=== PATIENT | female | born 1930 | race Caucasian/White ===

== ENCOUNTER 2017-08-18 07:10 | Inpatient (IN) | payer OTHER, MEDICARE ==
[~2017-08-18] VITALS: Ht 157.5 cm; Wt 62.6 kg
--- NOTE | 2017-08-18 07:10 | NUR ---
Patient BIBA ACLS, transferred to bed 10. RN evaluating patient at bedside.
[2017-08-18 07:15] VITALS: BP 144/73
--- NOTE | 2017-08-18 07:15 | NUR ---
PATIENT BIBA C/O UNRESPONSIVE, LOW BS , GLUCAGON WAS GIVEN ENROUTE. PATIENT NON VERBAL ,NON AMBULATORY. BS ON ER IS 25;D 5050 STARTED;HX OF DEMENTIA,ALZHEIMER AND DIVERTICULOSIS;SKIN IS PINK/WARM/DRY;LUNGS CLEAR BL; HR EVEN AND REGULAR; NO FEVER, CP, SOB, OR COUGH AT THIS TIME; PAIN SCALE OF 0/10 AT THIS TIME; PATIENT POSITIONED FOR COMFORT; HOB ELEVATED; BEDRAILS UP X2; BED DOWN. ALL MONITORS IN PLACED;ER MD MADE AWARE OF PT STATUS.
[2017-08-18] MEDS ORDERED: DEXTROSE 50% 50 ML SYR IVP ONE ×2 (07:30→07:55)
[2017-08-18] MEDS ORDERED: LOSA50TA39 PO (07:33)
[2017-08-18] MEDS ORDERED: SERT25TA PO (07:33)
[2017-08-18] MEDS ORDERED: QUET25TA PO (07:33)
[2017-08-18] MEDS ORDERED: CLON0.1T42 PO (07:33)
[2017-08-18] MEDS ORDERED: METO50TE2 PO (07:33)
[2017-08-18] MEDS ORDERED: ASPI81CT89 PO (07:33)
--- NOTE | 2017-08-18 07:38 | NUR ---
Shaheen means in [place] - 08/18/17 at 0739 by JULIANNE CALLED [facility] TO ASKED ABOUT PT'S CODE STATUS BUT NO ONE IS ANSWERING THE PHONE CALL;
--- NOTE | 2017-08-18 07:38 | NUR ---
CALLED [facility] TO ASKED ABOUT PT'S CODE STATUS BUT NO ONE IS ANSWERING THE PHONE CALL;
[2017-08-18] MEDS ORDERED: NACL 0.9% 1,000 ML IV ONE (08:35)
[2017-08-18] MEDS ORDERED: diphenhydrAMINE 50 MG/ML VIAL IVP ONE (09:10)
[2017-08-18] MEDS ORDERED: HALOPERIDOL IM 5 MG/ML VIAL IM ONE (09:10)
[2017-08-18 09:24] LABS: BASOPHILS # (AUTO) 0.2 K/uL (0.00-0.22); BASOPHILS % (AUTO) 2.1 % (0.0-2.0); EOSINOPHILS # (AUTO) 0.1 K/uL (0-0.4); EOSINOPHILS % (AUTO) 0.6 % (0.0-4.0); HEMATOCRIT 47.4 % (36-48); HEMOGLOBIN 15.4 g/dL (12.0-16.0); LYMPHOCYTES # (AUTO) 0.9 K/uL (2.5-16.5); LYMPHOCYTES % (AUTO) 8.9 % (20.5-51.1); MEAN CORPUSCULAR HEMOGLOBIN 29 pg (27-31); MEAN CORPUSCULAR HGB CONC 32 g/dL (33-37); MEAN CORPUSCULAR VOLUME 90 fL (80-94); MONOCYTES # (AUTO) 0.6 K/uL (0.8-1.0); MONOCYTES % (AUTO) 5.9 % (1.7-9.3); NEUTROPHILS # (AUTO) 8.2 K/uL (1.8-7.7); NEUTROPHILS % (AUTO) 82.5 % (42.2-75.2); PLATELET COUNT (AUTO) 204 K/uL (140-450); RED BLOOD CELL COUNT(AUTO) 5.24 MIL/uL (4.20-5.40)
--- NOTE | 2017-08-18 09:27 | NUR ---
PER DR GELACIO ALLEN
[2017-08-18 09:29] LABS: ALBUMIN 3.1 g/dL (3.4-5.0); ASPARTATE AMINOTRANSFERASE 42 U/L (15-37); CARBON DIOXIDE 28.8 mmol/L (21-32); CHLORIDE 102 mmol/L (98-107); CREATININE 1.4 mg/dL (0.6-1.3); POTASSIUM 4.8 mmol/L (3.5-5.1); SODIUM SERUM 139 mmol/L (136-145); TOTAL BILIRUBIN 0.6 mg/dL (0.0-1.0); UREA NITROGEN, BLOOD 45 mg/dL (7-18)
[2017-08-18 09:31] LABS: GLUCOSE 40 mg/dL (74-106)
[2017-08-18 09:39] LABS: BILIRUBIN,URINE NEGATIVE (NEGATIVE); BLOOD, URINE TRACE-I (NEGATIVE); COLOR,URINE YELLOW (YELLOW); LEUKOCYTE ESTERASE ,URINE 1+ (NEGATIVE); PH,URINE 5.5 (5.0-9.0); UGLUCOSE NEGATIVE (NEGATIVE)
--- NOTE | 2017-08-18 09:43 | NUR ---
PER CHARGE NURSE;RECIEVED A CALL FROM LAB REGARDING PT'S BS OF 40;RECHECKED BS THRU ACCUCHECK OBTAIN BS OF 100; CHARGE NURSE WANTS TO ORDER A BLOOD REDRAW;NOTIFIED DR BRIZUELA ;PER DR BRIZUELA NO BLOOD REDRAW AND START D10;
[2017-08-18 09:47] LABS: NITRITE, URINE POSITIVE (NEGATIVE); RBC,URINE 0-5 (RARE) /HPF (0-5); WBC,URINE 6-15 (FEW) /HPF (0-5)
[2017-08-18 09:48] LABS: APPEARANCE,URINE SLIGHTLY HAZY (CLEAR); YEAST,URINE Few /HPF (None Seen)
--- NOTE | 2017-08-18 09:57 | NUR ---
PER DR BRIZUELA START D10 1 L TO RUN AT 100 ML/HR;D10 1 L WAS STARTED AT AROUND 0952 AT 100 ML/HOUR;
[2017-08-18] MEDS ORDERED: cefTRIAXone 1,000 MG VIAL ONE (10:20)
--- NOTE | 2017-08-18 10:29 | NUR ---
PT SLEEPING AT THIS TIME BUT AROUSABLE;NO CUTE DIASTRESS NOTED AT THIS TIME;WILL CONTINUE TO MONITOR.
--- NOTE | 2017-08-18 10:45 | NUR ---
WENT TO CT SCAN ACCOMPNAIED BY TECH.
[2017-08-18] MEDS ORDERED: HYDROcodone/APAP 5/325 MG 1 TAB TAB PO PRN (11:00)
[2017-08-18] MEDS ORDERED: ONDANSETRON 4 MG/2 ML VIAL IVP PRN (11:00)
[2017-08-18] MEDS ORDERED: ACETAMINOPHEN 325 MG TAB PO PRN (11:00)
--- NOTE | 2017-08-18 11:02 | NUR ---
BACK FROM CT SCAN ACCOMPANIED BY GEOVANNA.
--- NOTE | 2017-08-18 11:15 | NUR ---
PER RESEARCH CONSULTANT THERE IS NO BED AVAILABLE FOR THE PT.
--- NOTE | 2017-08-18 12:30 | NUR ---
Patient will be admitted to care of DR PINZON. Admited to MS. Will go to room 105 A. Belongings list completed. Report to BAY CHERY.
[2017-08-18 12:45] VITALS: BP 120/49
--- NOTE | 2017-08-18 12:45 | NUR ---
PT ADMITTED TO UNIT FROM ER. PT AWAKE WITH ALOC. PT ON RA WITH NO SOB OR RESPIRATORY DISTRESS. IV LINE NOTED TO THE RIGHT AC WITH IVF INFUSING WELL. IV LINE TO THE LEFT FOREARM SL. FARRIS CATHETER IN PLACE DRAINING CLEAR LIGHT ANGELINA URINE. PT HAS BLANCHABLE REDNESS ON RIGHT HIP AND PT HAS SCAB ON THE LEFT HIP. BED LOWERED AND CALL LIGHT WITHIN REACH. WILL CONTINUE TO MONITOR PATIENT.
--- NOTE | 2017-08-18 13:00 | NUR ---
PT SEEN BY DR. Juan David PINZON. PT'S PRESENT IN ROOM.
[2017-08-18] MEDS: DEXTROSE 10% 1,000 ML IV SCH ×2 (13:06→22:55)
--- NOTE | 2017-08-18 15:00 | NUR ---
PER PT'S PT HAS NOT BEEN EATING AND HAS BEEN HAVING DIFFICULTY SWALLOWING. NOTIFIED DR. Juan David PINZON. DR. BEDOYA SWALLOW EVAL.
[2017-08-18] MEDS: DEXT 5% /NACL 0.9% 1,000 ML IV SCH ×2 (15:31→18:10)
[2017-08-18] MEDS: LORazepam 2 MG/ML VIAL IM/IVP PRN (15:46)
[2017-08-18 16:00] VITALS: BP 112/57
--- NOTE | 2017-08-18 17:40 | NUR ---
PATIENT ASLEEP IN BED WITH NO S/S OF RESPIRATORY DISTRESS. WILL CONTINUE TO MONITOR PATIENT.
--- NOTE | 2017-08-18 19:31 | NUR ---
PATIENT REPORT GIVEN AT BEDSIDE TO NIGHT NURSE. PATIENT IS IN STABLE CONDITION.
--- NOTE | 2017-08-18 19:31 | NUR ---
PATIENT IS SLEEPING AT THIS TIME WITH OXYGEN AT 2L IN PLACE .IVF INFUSING WELL IV SITE PATENT PATIENT IS CURRENTLY CLEAN AND DRY 24HR URINE COLLECTION INITIATED AT THIS TIME AND KEPT ON ICE.FALL AND SAFETY PRECAUTIONS IMPLEMENTED.BED ALARM ON.WILL CONTINUE TO MONITOR.
[2017-08-18 20:00] VITALS: BP 111/48
[2017-08-18] MEDS: cloNIDine 0.1 MG TAB PO SCH (20:18)
[2017-08-18] MEDS: METOPROLOL SUCCINATE 50 MG TABER PO SCH (20:19)
[2017-08-18] MEDS: QUEtiapine FUMARATE 25 MG TAB PO SCH (20:29)
--- NOTE | 2017-08-18 20:30 | NUR ---
HOB ELEVATED AND MED ADMINISTERED WITH SMALL TEASPOON OF APPLESAUCE AFTER INSISTING THE PATIENT SEVERAL TIMES PATIENT TOOK THE MEDS AND SWALLOWED THE LITTLE BIT OF APPLESAUCE WELL AND TOOK ONLY A SIP OF WATER PATIENT IS CONFUSED AND DOESN'T FOLLOW INSTRUCTIONS WELL. PATIENT SLEEPY ON AND OFF.CALL LIGHT WITHIN REACH BED ALARM ON.
[2017-08-18] MEDS ORDERED: LOSARTAN 50 MG TAB PO SCH (21:00)
--- NOTE | 2017-08-18 21:10 | NUR ---
Patient's Plan of Care was discussed and reviewed with CODE ENFORCEMENT OFFICER: MOON MADERA
--- NOTE | 2017-08-18 21:59 | NUR ---
PATIENT IS CURRENTLY BEING TURNED AND REPOSITIONED FOR COMFORT. BLOOD SUGAR CHECK DONE ON THE PATIENT BECAUSE PATIENT HAS POOR APPETITE AND IS NOT EATING. BS RESULT AT THIS TIME. 286MG/DL WILL CONTINUE TO MONITOR.
--- NOTE | 2017-08-18 22:15 | NUR ---
PATIENT CURRENTLY SLEEPING IN BED IN NO DISTRESS.
[2017-08-19 00:15] VITALS: BP 105/48
--- NOTE | 2017-08-19 00:15 | NUR ---
PATIENT IS CURRENTLY RESTING IN BED TURNED AND REPOSITIONED FOR COMFORT.IVF INFUSING WELL IV SITE PATENT.BED ALARM ON WILL CONTINUE TO MONITOR.
--- NOTE | 2017-08-19 02:15 | NUR ---
PATIENT SLEEPING WAS TURNED AND REPOSITIONED FOR COMFORT.CALL LIGHT WITHIN REACH BED ALARM ON WILL CONTINUE TO MONITOR.
--- NOTE | 2017-08-19 04:15 | NUR ---
PATIENT IS CURRENTLY RESTING IN BED TURNED AND REPOSITIONED GOOD JORGE LUIS CARE GIVEN.MORE ICE APPLIED TO 24HR URINE COLLECTION AND CONTINUES TO BE ONGOING.IVF INFUSING WELL IV SITE PATENT WILL CONTINUE TO MONITOR THE PATIENT.
[2017-08-19] MEDS: DEXT 5% /NACL 0.9% 1,000 ML IV SCH ×2 (04:31→17:00)
[2017-08-19 04:55] VITALS: BP 105/48
--- NOTE | 2017-08-19 06:30 | NUR ---
PATIENT SLEEPING IN BED.
[2017-08-19 07:10] LABS: BASOPHILS # (AUTO) 0.1 K/uL (0.00-0.22); BASOPHILS % (AUTO) 0.9 % (0.0-2.0); EOSINOPHILS # (AUTO) 0.1 K/uL (0-0.4); EOSINOPHILS % (AUTO) 0.8 % (0.0-4.0); HEMATOCRIT 37.7 % (36-48); HEMOGLOBIN 12.5 g/dL (12.0-16.0); LYMPHOCYTES # (AUTO) 1.3 K/uL (2.5-16.5); LYMPHOCYTES % (AUTO) 16.6 % (20.5-51.1); MEAN CORPUSCULAR HEMOGLOBIN 30 pg (27-31); MEAN CORPUSCULAR HGB CONC 33 g/dL (33-37); MEAN CORPUSCULAR VOLUME 90 fL (80-94); MONOCYTES # (AUTO) 0.5 K/uL (0.8-1.0); MONOCYTES % (AUTO) 6.9 % (1.7-9.3); NEUTROPHILS # (AUTO) 5.9 K/uL (1.8-7.7); NEUTROPHILS % (AUTO) 74.8 % (42.2-75.2); PLATELET COUNT (AUTO) 151 K/uL (140-450); RED BLOOD CELL COUNT(AUTO) 4.19 MIL/uL (4.20-5.40); WHITE BLOOD COUNT (AUTO) 7.9 K/uL (4.8-10.8)
--- NOTE | 2017-08-19 07:24 | NUR ---
PATIENT STABLE REPORT ENDORSED TO MIRI LARSEN HE WILL RESUME CARE OF THE PATIENT.
--- NOTE | 2017-08-19 07:30 | NUR ---
RECEIVED BEDSIDE REPORT FROM PRINCIPAL TECHNOLOGIST NURSE. PT AROUSED TO VOICE. ORIENTED X1 TO NAME. OXYGEN VIA NC AT 2L. IV NOTED AT THE RIGHT AC, INFUSING WELL. NO S/S OF DISTRESS NOTED. 24HR URINE COLLECTION INITIATED AT 1935 ON 08/18/17. FALL AND SAFETY PRECAUTIONS IMPLEMENTED. CALL LIGHT WITHIN REACH. BED ALARM ON. WILL CONTINUE TO MONITOR.
[2017-08-19 07:45] LABS: ANION GAP 11.6 (8-16); CARBON DIOXIDE 26.5 mmol/L (21-32); CHLORIDE 106 mmol/L (98-107); CREATININE 1.3 mg/dL (0.6-1.3); GLUCOSE 241 mg/dL (74-106); POTASSIUM 4.1 mmol/L (3.5-5.1); SODIUM SERUM 140 mmol/L (136-145); UREA NITROGEN, BLOOD 30 mg/dL (7-18)
[2017-08-19 07:47] LABS: MAGNESIUM 1.5 mg/dL (1.8-2.4)
[2017-08-19 08:00] VITALS: BP 142/80
[2017-08-19] MEDS: cloNIDine 0.1 MG TAB PO SCH ×3 (09:00→21:14)
[2017-08-19] MEDS: ASPIRIN 81 MG TAB.CHEW PO SCH (09:00)
[2017-08-19] MEDS: METOPROLOL SUCCINATE 50 MG TABER PO SCH ×3 (09:00→21:13)
--- NOTE | 2017-08-19 09:30 | NUR ---
AT BEDSIDE. PT IS LYING ON HER LEFT SIDE. BREATHING EVEN AND UNLABORED. WILL CONTINUE TO MONITOR.
[2017-08-19] MEDS: LORazepam 2 MG/ML VIAL IM/IVP PRN ×3 (10:18→21:12)
[2017-08-19] MEDS ORDERED: MORPHINE SULFATE 2 MG/ML SYR IVP PRN (10:50)
[2017-08-19] MEDS ORDERED: MAG SULF 2000 MG/WATER PREMIX 50 ML IV ONE (15:00)
[2017-08-19 16:00] VITALS: BP 107/45
[2017-08-19] MEDS ORDERED: POTASSIUM PHOSPHATE 15 MM in NACL 0.9% 250 ML IV ONE (16:00)
--- NOTE | 2017-08-19 19:31 | NUR ---
24 HR URINE COLLECTION FINISHED COLLECTED, SENT TO LAB.
--- NOTE | 2017-08-19 19:41 | NUR ---
ENDORSED PT TO BARIATRIC COORDINATOR. PT IS IN STABLE CONDITION.
--- NOTE | 2017-08-19 19:42 | NUR ---
RECEIVED BEDSIDE REPORT FROM DAY SHIFT NURSE SUZIE RN, PT STABLE, NO DISTRESS NOTED, IV TO THE L FA 22G INFUSING WELL, PT CONFUSED, TRYING TO TAKE HER CLOTHES OFF, FLACC 0, FARRIS CATH IN PLACE DRAINING YELLOW URINE, INITIAL ASSESSMENT DONE, ALL SAFETY PRECAUTION MET, CALL LIGHT WITHIN REACH, WILL CONTINUE TO MONITOR.
[2017-08-19] MEDS: QUEtiapine FUMARATE 25 MG TAB PO SCH ×2 (21:00→21:13)
--- NOTE | 2017-08-19 21:00 | NUR ---
LAB CALLED, TO RECOLLECT 24 HR URINE COLLECTION.
--- NOTE | 2017-08-19 21:24 | NUR ---
PT REFUSED MEDICATION, WHEN TRYING TO ADMINISTER THE MEDICATION, PT SPIT IT BACK OUT, AND TRIED TO BITE NURSE'S HAND. PT AGITATED, TRYING TO PULL IV AND GOWN OFF. ATIVAN IV GIVEN, PT STABLE, NO DISTRESS NOTED, CALL LIGHT WITHIN REACH. WILL CONTINUE TO MONITOR.
[2017-08-19] MEDS ORDERED: VANCOMYCIN PER PHARMACY MC PRN (21:45)
[2017-08-19] MEDS ORDERED: VANCOMYCIN HCL 750 MG in DEXTROSE 5% 250 ML IV SCH (22:00)
[2017-08-19] MEDS ORDERED: VANCOMYCIN 1,000 MG VIAL ONE (22:39)
--- NOTE | 2017-08-19 22:40 | NUR ---
DUE MEDICATION GIVEN, PT TOLERATED WELL, NO DISTRESS NOTED, PT SLEEPING, EASY TO AROUSE, CALL LIGHT WITHIN REACH, WILL CONTINUE TO MONITOR.
[2017-08-20] VITALS: BP 135/79
--- NOTE | 2017-08-20 | NUR ---
CHECKED ON PT, PT STABLE, NO DISTRESS NOTED, SLEEPING, PT KEEPS PULLING NC, PO2 98% ON ROOM AIR, CALL LIGHT WITHIN REACH, WILL CONTINUE TO MONITOR.
--- NOTE | 2017-08-20 00:41 | NUR ---
LAB RECONFIRMED THAT URINE 24HR URINE CULTURE IS NOT NEEDED, THE PREVIOUS SAMPLE WAS VIABLE.
[2017-08-20] MEDS: LORazepam 2 MG/ML VIAL IM/IVP PRN ×2 (02:41→09:56)
--- NOTE | 2017-08-20 02:41 | NUR ---
PT AGITATED, TRYING TO PULL IV OUT AND TAKING OFF CLOTHES, MEDICATION GIVEN, PT STABLE, NO DISTRESS NOTED, CALL LIGHT WITHIN REACH, WILL CONTINUE TO MONITOR.
[2017-08-20] MEDS: DEXT 5% /NACL 0.9% 1,000 ML IV SCH (04:01)
--- NOTE | 2017-08-20 04:04 | NUR ---
CHECKED ON PT, PT STABLE , NO DISTRESS NOTED, SLEEPING, CALM, CALL LIGHT WITHIN REACH, WILL CONTINUE TO MONITOR.
[2017-08-20 05:44] LABS: CREATININE 1.3 mg/dL (0.6-1.3); TOTAL VOLUME 24HRS,URINE 600 mL
--- NOTE | 2017-08-20 06:32 | NUR ---
CHECKED ON PT, PT SLEEPING, STABLE, NO S/S OF DISTRESS, CALL LIGHT WITHIN REACH, WILL CONTINUE TO MONITOR.
[2017-08-20 07:05] LABS: BASOPHILS # (AUTO) 0.1 K/uL (0.00-0.22); BASOPHILS % (AUTO) 0.8 % (0.0-2.0); EOSINOPHILS # (AUTO) 0.1 K/uL (0-0.4); EOSINOPHILS % (AUTO) 1.1 % (0.0-4.0); HEMOGLOBIN 11.5 g/dL (12.0-16.0); LYMPHOCYTES # (AUTO) 1.7 K/uL (2.5-16.5); LYMPHOCYTES % (AUTO) 23.9 % (20.5-51.1); MEAN CORPUSCULAR HEMOGLOBIN 29 pg (27-31); MEAN CORPUSCULAR HGB CONC 33 g/dL (33-37); MEAN CORPUSCULAR VOLUME 90 fL (80-94); MONOCYTES # (AUTO) 0.6 K/uL (0.8-1.0); MONOCYTES % (AUTO) 8.6 % (1.7-9.3); NEUTROPHILS # (AUTO) 4.5 K/uL (1.8-7.7); NEUTROPHILS % (AUTO) 65.6 % (42.2-75.2); PLATELET COUNT (AUTO) 141 K/uL (140-450); RED BLOOD CELL COUNT(AUTO) 3.91 MIL/uL (4.20-5.40); RED CELL DISTRIBUTION WIDTH 14.8 % (11.6-13.7)
--- NOTE | 2017-08-20 07:15 | NUR ---
GAVE BEDSIDE REPORT TO DAY SHIFT NURSE GEORG[place] CHERY, ENDORSED PLAN OF CARE, PT STABLE NO DISTRESS NOTED, CALL LIGHT WITHIN REACH.
--- NOTE | 2017-08-20 07:17 | NUR ---
RECEIVED REPORT FROM ASSOCIATE TRAINER RN. PATIENT IS CONFUSED, RESPIRATORY EFFORT IS EVEN AND UNLABORED. NO SIGNS AND SYMPTOMS OF DISTRESS NOTED AT THIS TIME. HAS IV TO LEFT FA 22G, INFUSING D5NS AT 100ML/HR. SITE IS CLEAN, DRY, PATENT AND INTACT. WRAPPED WITH GAUZE DUE TO ATTEMPTS OF PULLING IV OUT. PATIENT HAS FARRIS CATHETER, DRAINING TO GRAVITY. SAFETY PRECAUTIONS IN PLACE. PATIENT BED IN LOWEST POSITION, SIDE RAILS UP X2, CALL LIGHT PLACED WITHIN REACH. WILL CONTINUE TO MONITOR.
[2017-08-20 07:18] LABS: ANION GAP 12.1 (8-16); CARBON DIOXIDE 27.5 mmol/L (21-32); CHLORIDE 109 mmol/L (98-107); CREATININE 1.1 mg/dL (0.6-1.3); GLUCOSE 277 mg/dL (74-106); POTASSIUM 4.6 mmol/L (3.5-5.1); SODIUM SERUM 144 mmol/L (136-145); UREA NITROGEN, BLOOD 19 mg/dL (7-18)
[2017-08-20 08:00] VITALS: BP 148/70
[2017-08-20] MEDS: ASPIRIN 81 MG TAB.CHEW PO SCH (09:00)
[2017-08-20] MEDS: cloNIDine 0.1 MG TAB PO SCH ×2 (09:00→21:20)
[2017-08-20] MEDS: METOPROLOL SUCCINATE 50 MG TABER PO SCH ×2 (09:00→21:20)
--- NOTE | 2017-08-20 09:14 | NUR ---
PATIENT HAS BEEN SCREENED AND CATEGORIZED HIGH NUTRITION RISK. PATIENT WILL BE SEEN WITHIN 1-2 DAYS OF ADMISSION. 08/19/17 - 08/20/17 YOANA GRAF MBA, RD
--- NOTE | 2017-08-20 12:19 | NUR ---
08/20/17 RD INITIAL ASSESSMENT COMPLETED PLEASE REFER TO NUTRITION ASSESSMENT UNDER CARE ACTIVITY FOR ESTIMATED NUTRITIONAL NEEDS. RD RECOMMENDATIONS: 1- RECOMMEND CONTINUE NPO DIET. 2- WHEN MEDICALLY CLEARED FOR DIET, RECOMMEND MECHANICAL SOFT DIET. START & OBSERVE TOLERANCE. 3- ON F/U RD TO EVALUATE PO INTAKE & TOLERANCE TO DIET IF APPLICABLE VS NEED FOR SWALLOW EVAL OR NUTRITION SUPPORT. 4- RD F/U 2-3 DAYS; HIGH RISK YOANA GRAF MBA, RD
[2017-08-20 13:22] LABS: CREATININE,URINE 112 mg/dL (30-125)
[2017-08-20 13:26] LABS: URINE SODIUM, RANDOM 38 mmol/l (40-220)
[2017-08-20 16:00] VITALS: BP 112/83
--- NOTE | 2017-08-20 19:18 | NUR ---
ENDORSED PATIENT TO MECHANICAL TEST ENGINEER NURSE FOR CONTINUITY OF CARE. PATIENT IN STABLE CONDITION.
--- NOTE | 2017-08-20 19:19 | NUR ---
RECD. RESTING IN BED, AWAKE, ALERT, OX1, MUMBLES WHEN QUESTIONS ASKED, CONFUSED. RESPIRATION EVEN AND UNLABORED. IV SALINE LOCK AT THE LEFT FOREARM, G22 PATENT AND INTACT. REORIENTED TO HOSPITAL SETTING. NEEDS REINFORCEMENT. F/C PATENT DRAINING CLEAR, YELLOW URINE. SAFETY MEASURES ENFORCED. BED ON ALARM. NO APPEARANCE OF PAIN NOTED 0/10.WILL CONTINUE TO MONITOR PATIENT TO ENSURE SAFETY DURING SHIFT.
--- NOTE | 2017-08-20 21:15 | NUR ---
ENDORSED TO MIRI ATKINS FOR CONTINUITY OF CARE.
[2017-08-20] MEDS: QUEtiapine FUMARATE 25 MG TAB PO SCH (21:20)
--- NOTE | 2017-08-20 21:20 | NUR ---
RECEIVED REPORT FROM AM NURSE. PT RESTING IN BED, AOX1, CONFUSED, MUMBLES INCOMPREHENSIBLE WORDS AT TIMES, BEDBOUND, UNABLE TO FOLLOW SIMPLE COMMANDS. L HIP DRY SCABS NOTED, STATION INSPECTOR. R ANKLE SCABS AND REDNESS NOTED, JOYCE. BILAT HEEL REDNESS NOTED. FARRIS CATH IN PLACE, DRAINING WELL. IV ACCESS ASYMPTOMATIC, PATENT AND INTACT. SALINE LOCKED. PT TURNED AND REPOSITIONED, OFFLOADED PRESSURE AREAS BY CNAs. PT TOLERATED WELL. DISCUSSED AND REVIEWED PLAN OF CARE WITH PT. PT CONFUSED, WILL CONTINUE WITH CONSTANT REINFORCEMENT. ALL NEEDS MET. BED ALARM AND SAFETY MEASURES ENSURED. CALL LIGHT WITHIN REACH. WILL CONTINUE TO MONITOR.
[2017-08-20] MEDS ORDERED: VANCOMYCIN 1GM/DEXT 5% PREMIX 200 ML IV SCH (22:00)
--- NOTE | 2017-08-20 22:20 | NUR ---
ADMINISTERED DUE MED VANCOMYCIN IVPB ORDERED WITH EDUCATION, WILL CONTINUE WITH CONSTANT REINFORCEMENT. DUE PO MEDS WERE HELD DUE TO PT BEING NPO. ORAL CARE PERFORMED, ALL NEEDS MET. SAFETY MEASURES ENSURED. CALL LIGHT WITHIN REACH. WILL CONTINUE TO MONITOR.
[2017-08-21] VITALS: BP 140/93
--- NOTE | 2017-08-21 04:00 | NUR ---
PT HAD SMEAR OF BM, PT CLEANED, TURNED AND REPOSITIONED WITH CNAs. PT RESTLESS BUT ABLE TO TOLERATE. ALL NEEDS MET. SAFETY MEASURES ENSURED. CALL LIGHT WITHIN REACH. WILL CONTINUE TO MONITOR.
[2017-08-21] MEDS: LORazepam 2 MG/ML VIAL IM/IVP PRN (04:17)
[2017-08-21 06:54] LABS: BASOPHILS # (AUTO) 0.1 K/uL (0.00-0.22); BASOPHILS % (AUTO) 1.2 % (0.0-2.0); EOSINOPHILS # (AUTO) 0.1 K/uL (0-0.4); EOSINOPHILS % (AUTO) 2.1 % (0.0-4.0); HEMATOCRIT 34.6 % (36-48); HEMOGLOBIN 11.6 g/dL (12.0-16.0); LYMPHOCYTES # (AUTO) 1.3 K/uL (2.5-16.5); LYMPHOCYTES % (AUTO) 18.7 % (20.5-51.1); MEAN CORPUSCULAR HEMOGLOBIN 30 pg (27-31); MEAN CORPUSCULAR HGB CONC 33 g/dL (33-37); MEAN CORPUSCULAR VOLUME 89 fL (80-94); MONOCYTES # (AUTO) 0.5 K/uL (0.8-1.0); MONOCYTES % (AUTO) 7.6 % (1.7-9.3); NEUTROPHILS # (AUTO) 4.8 K/uL (1.8-7.7); NEUTROPHILS % (AUTO) 70.4 % (42.2-75.2); PLATELET COUNT (AUTO) 145 K/uL (140-450); RED CELL DISTRIBUTION WIDTH 14.5 % (11.6-13.7); WHITE BLOOD COUNT (AUTO) 6.8 K/uL (4.8-10.8)
[2017-08-21 07:11] LABS: ANION GAP 12.4 (8-16); CARBON DIOXIDE 26.7 mmol/L (21-32); CHLORIDE 107 mmol/L (98-107); GLUCOSE 206 mg/dL (74-106); POTASSIUM 4.1 mmol/L (3.5-5.1); SODIUM SERUM 142 mmol/L (136-145); UREA NITROGEN, BLOOD 12 mg/dL (7-18)
--- NOTE | 2017-08-21 07:15 | NUR ---
ENDORSED PLAN OF CARE TO AM NURSE. CONDITION STABLE.
--- NOTE | 2017-08-21 07:16 | NUR ---
RECEIVED REPORT FROM INSPECTOR WATCH ASSEMBLY RN. PATIENT IS CONFUSED, RESPIRATORY EFFORT IS EVEN AND UNLABORED. NO SIGNS AND SYMPTOMS OF DISTRESS NOTED AT THIS TIME. HAS IV TO LEFT FA 22G, INFUSING D5NS AT 100ML/HR. SITE IS CLEAN, DRY, PATENT AND INTACT. WRAPPED WITH GAUZE DUE TO ATTEMPTS OF PULLING IV OUT. PATIENT HAS FARRIS CATHETER, DRAINING TO GRAVITY. SAFETY PRECAUTIONS IN PLACE. PATIENT BED IN LOWEST POSITION, SIDE RAILS UP X2, CALL LIGHT PLACED WITHIN REACH. WILL CONTINUE TO MONITOR.
[2017-08-21 08:00] VITALS: BP 143/75
[2017-08-21] MEDS: cloNIDine 0.1 MG TAB PO SCH ×2 (09:00→21:00)
[2017-08-21] MEDS: METOPROLOL 50 MG TAB PO SCH ×2 (09:00→21:00)
[2017-08-21] MEDS: ASPIRIN 81 MG TAB.CHEW PO SCH (09:00)
--- NOTE | 2017-08-21 11:27 | NUR ---
DR PINZON WANTS ATIVAN AND MORPHINE TO BE HELD SO PATIENT CAN BE MORE AWAKE FOR SPEECH/SWALLOW EVALUATION.
--- NOTE | 2017-08-21 12:02 | NUR ---
IS AT THE BEDSIDE, ASKING ABOUT WHEN DR PINZON WILL BE BY. PER CHARGE NURSE DR PINZON STATED HE WILL BE HERE AROUND 1400.
--- NOTE | 2017-08-21 14:55 | NUR ---
RECEIVED ORDER FOR [facility]. RECEIVED A CALL FROM OMA FROM [facility]. FAXED INFORMATION TO HER AT [phone]. PHONE [phone].
[2017-08-21 16:00] VITALS: BP 126/69
--- NOTE | 2017-08-21 19:37 | NUR ---
ENDORSED PATIENT TO GREY STOCK RECORDER NURSE FOR CONTINUITY OF CARE. PATIENT IN STABLE CONDITION.
--- NOTE | 2017-08-21 19:38 | NUR ---
RECD. RESTING IN BED, AWAKE, A/OX1, MUMBLES BUT OCCASIONALLY ABLE TO PRONOUNCE CLEARLY SOME WORDS. RESPIRATION EVEN AND UNLABORED. IV SALINE LOCK AT THE RIGHT FOREARM G22, PATENT AND INTACT. WITH REDNESS ON RIGHT HIP, RIGHT ANKLE, LEFT AND RIGHT KNEE AND SACRAL AND LEFT HIP SCAB. REPOSITIONED EVERY TWO HOURS AND ENSURE SAFETY, SAFETY MEASURES ENFORCED. DNR. NO APPEARANCE OF PAIN NOTED 0/10.
--- NOTE | 2017-08-21 19:38 | NUR ---
REORIENTED PATIENT TO HOSPITAL SETTING. WITH F/C DRAINING CLEAR YELLOW URINE.
--- NOTE | 2017-08-21 20:00 | NUR ---
Patient's Plan of Care was discussed and reviewed with OFFSHORE WIND OPERATIONS MANAGER: KODAK
--- NOTE | 2017-08-21 20:00 | NUR ---
COMPLAINT OF PAIN IN THE IV SITE, TOOK OFF OF KERLIX COVER, IV INFILTRATED. WILL INSERT NEW IV LINE.
[2017-08-21] MEDS: QUEtiapine FUMARATE 25 MG TAB PO SCH (21:00)
--- NOTE | 2017-08-21 21:24 | NUR ---
DR. BOLIVAR CAME TO CHECKED PATIENT. DISCONTINUED IV VANCOMYCIN.
--- NOTE | 2017-08-21 22:00 | NUR ---
NEW IV LINE INSERTED AT THE RIGHT WRIST G22 BY CHARGE NURSE VINCE. PATIENT WITH CONFUSION. REORIENTED TO HOSPITAL SETTING. TRYING TO PULL OUT IV LINE, COVERED WITH KERLIX FOR PROTECTION.
[2017-08-22] VITALS: BP 109/67
--- NOTE | 2017-08-22 04:00 | NUR ---
STILL RESTING COMFORTABLY SLEEPING IN BED, NO ATTEMPT TO PULL OUT NEW IV LINE.
--- NOTE | 2017-08-22 06:43 | NUR ---
CONDITION REMAIN STABLE. WILL ENDORSE TO AM NURSE FOR CONTINUITY OF CARE.
--- NOTE | 2017-08-22 07:15 | NUR ---
ENDORSED TO MIRI THIBODEAUX FOR CONTINUITY OF CARE.
--- NOTE | 2017-08-22 07:16 | NUR ---
RECEIVED REPORT FROM LOOP DRIER OPERATOR RN. PATIENT IS CONFUSED, RESPIRATORY EFFORT IS EVEN AND UNLABORED. NO SIGNS AND SYMPTOMS OF DISTRESS NOTED AT THIS TIME. HAS IV TO RIGHT WRIST 22G, ON SALINE LOCK. SITE IS CLEAN, DRY, PATENT AND INTACT. WRAPPED WITH GAUZE DUE TO ATTEMPTS OF PULLING IV OUT. PATIENT HAS FARRIS CATHETER, DRAINING TO GRAVITY. SAFETY PRECAUTIONS IN PLACE. PATIENT BED IN LOWEST POSITION, SIDE RAILS UP X2, CALL LIGHT PLACED WITHIN REACH. WILL CONTINUE TO MONITOR.
[2017-08-22 08:00] VITALS: BP 151/71
[2017-08-22] MEDS: METOPROLOL 50 MG TAB PO SCH (09:00)
[2017-08-22] MEDS: cloNIDine 0.1 MG TAB PO SCH (09:00)
[2017-08-22] MEDS: ASPIRIN 81 MG TAB.CHEW PO SCH (09:00)
--- NOTE | 2017-08-22 10:04 | NUR ---
WANTED TO GIVE PATIENT WATER BUT TOLD HIM THAT SHE STILL HASN'T HAD THE SWALLOW EVAL. ATTEMPTED TO DO ORAL CARE ON PATIENT BUT SHE REFUSED. WILL CONTINUE TO MONITOR.
--- NOTE | 2017-08-22 12:02 | NUR ---
WOUND CARE EVALUATION NOTES: REASON FOR EVALUATION: HIPS REDNESS COMPLETE SKIN ASSESSMENT DONE ON THIS 86 Y/O FEMALE PATIENT TO [facility], WITH INITIAL DIAGNOSIS OF ALOC. PAST MEDICAL HISTORY INCLUDE HTN, DIVERTICULOSIS AND ALZHEIMER'S DEMENTIA. ALL ABOVE INFORMATION WAS OBTAINED FROM THE ADMISSION H&P. LABS ARE WBC 6.8, H/H 11.6/34.6, GLUCOSE 206, ALBUMIN 3.1, PT/INR 11.0/1.1. CURRENT MEDS INCLUDE CEFTRIAXONE, QUETIAPINE, METOPROLOL AND ASPIRIN . PATIENT IS AWAKE BUT CONFUSE, ABLE TO FOLLOW SIMPLE COMMANDS. SKIN WARM TO TOUCH WNL,TOENAILS SHORT AND THICKENED, NO EDEMA, NO HAIR GROWTH AND BILATERAL PEDAL PULSES PRESENT. FARRIS CATHETER PATENT AND INTACT TO ANGELINA COLORED URINE IN SMALL AMOUNT. NEEDS ASSISTANCE IN TURNING. PLAN OF CARE AND PRESSURE PREVENTIVE MEASURES DISCUSSED WITH PRIMARY NURSE. INTEGUMENTARY: LEFT AND RIGHT HIPS BLANCHABLE REDNESS LEFT AND RIGHT HEELS DRY THICK CALLUS RIGHT LATERAL ANKLE ABRASION, 1X1CM AREA IS DRY BLE SKIN DRYNESS RECOMMENDATIONS: -APPLY SKIN LOTION TO BLE DRY SKIN AREA BID -TURN AND REPOSITION PATIENT Q2H -ASSESS AND MONITOR SKIN CONDITION DURING POSITION CHANGE, PLEASE PAY ATTENTION TO HIPS AND HEELS -OFFLOAD BILATERAL HEELS BY PLACING PILLOWS UNDER CALVES AT ALL TIMES, UNLESS OTHERWISE CONTRAINDICATED -PRESSURE REDISTRIBUTION SURFACE THERAPY -KEEP SKIN CLEAN AND DRY AT ALL TIMES. RECOMMENDATIONS DISCUSSED WITH PRIMARY RN PLEASE CONTACT WOUND CARE NURSE FOR ANY CONCERNS AND CHANGES IN WOUND CONDITION
--- NOTE | 2017-08-22 14:00 | NUR ---
ECHO DONE DONE AT 1400 NOT AT 0930
--- NOTE | 2017-08-22 15:16 | NUR ---
RECEIVED A CALL EARLIER THIS MORNING FROM OMA, , FROM [facility]. SHE SAID THAT YOLANDE SPOKE WITH THE THIS AM AND HE SIGNED ON WITH THEM FOR HOSPICE. SHE SAID SHE WOULD BE CALLING [facility] ABOUT SENDING THE PATIENT TO THEM UNDER HOSPICE.
--- NOTE | 2017-08-22 15:36 | NUR ---
1430 SPOKE WITH OMA AT [facility] AND SHE STATED THAT THEY COULD HAVE EQUIPMENT DELIVERED TODAY AND HAVE PT PICKED UP BY 1830 BUT NEEDED MED RECONCILIATION. SPOKE WITH DR Carmen PINZON REGARDING SWALLOW EVAL STILL NOT DONE AND IF PT DOESN'T PASS HAS OTHER OPTIONS BEEN DISCUSSED WITH SPOUSE AND HE STATED HE DID NOT KNOW WHAT FAMILY WOULD WANT. 1530 CALL [address] TO MR IBARRA AND HE STATED THAT ALL HE WANTS IS FOR THE PT TO GO BACK TO [facility] WITH HOSPICE. HE STATED THAT PT HAS NOT BEEN EATING VERY MUCH PAST FEW DAYS AND DOESN'T WANT TO TAKE ANYTHING. HE STATED THAT THEY HAVE A LIVING WILL AND PT DID NOT WANT TO HAVE FEEDING TUBES PLACED AND AT THIS POINT HE JUST WANTS THE PT TO HAVE WHATEVER ORAL INTAKE SHE WANTS AND TO BE KEPT COMFORTABLE. CALLED OMA AT [facility] AND SHE WILL INFORM [facility] THAT PLAN FOR DISCHARGE TODAY IS STILL IN PLACE.
--- NOTE | 2017-08-22 15:43 | NUR ---
08/22/17 RD FOLLOW UP COMPLETED PLEASE REFER TO NUTRITION PROGRESS NOTE UNDER CARE ACTIVITY FOR ESTIMATED NUTRITION NEEDS. 1- (CONTINUE) RECOMMEND CONTINUE NPO DIET. 2- WHEN MEDICALLY CLEARED FOR DIET, ADVANCE DIET PER [employer] STUDIES PROFESSOR RECOMMENDATION. START & OBSERVE TOLERANCE. 3- (PENDING SWALLOW EVAL RESULTS)F/U RD TO EVALUATE PO INTAKE & TOLERANCE TO DIET 4- RD F/U 2-3 DAYS; HIGH RISK KATARZYNA MONTGOMERY, RD
--- NOTE | 2017-08-22 15:56 | NUR ---
PATIENT REFUSED TO LET ME DO HER VITAL SIGNS. STATED FOR ME TO LEAVE HER ALONE AND NOT TO TOUCH HER. WILL CONTINUE TO MONITOR.
--- NOTE | 2017-08-22 18:04 | NUR ---
CALLED AND LEFT DR PINZON A MESSAGE REGARDING PATIENT REFUSING TO DO THE SWALLOW EVAL. AWAITING A CALL BACK.
--- NOTE | 2017-08-22 18:30 | NUR ---
* ST PVE NOTE (Late entry for 08/21/17) * Clinician attempting to complete bedside swallow evaluation, calling nsg and inquiring as to pt's condition. Nsg informing clinician pt lethargic, unarousable, and thus advising for clinician not to come in at this time, w/clinician agreeable. Nsg informed clinician will re-attempt evaluation next day, w/nsg verbalizing understanding. PVE
--- NOTE | 2017-08-22 18:31 | NUR ---
* ST PVE NOTE * Pt seen today at bedside. Pt asleep upon entering room. Upon awakening, pt alert but uncooperative, refusing PO feeding trials at this time despite maximal education and cueing provided by clinician. Pt stating, "No! I don't want it", and swatting puree, regular solid and thin liquid trials away, w/clinician concluding swallow evaluation attempt at that time. Pt and nsg education completed regarding pt's adamant refusal, w/nsg stating pt has been refusing medication and oral care all day. Pt planned to D/C to hospice care at [facility]. If pt is still at [facility] next day, clinician will re-attempt swallow evaluation yet again. PVE Time In/Out 17:55 - 18:10
--- NOTE | 2017-08-22 19:16 | NUR ---
DISCHARGE ORDERS IN PLACE. PATIENT IV SITE REMOVED, SITE IS CLEAN, DRY. CATHETER IS PATENT. GOING BACK TO [facility] FOR HOSPICE CARE. FARRSI CATHETER IN PLACE. TRANSPORT IS HERE TO TAKE PATIENT. ALL BELONGINGS WITH PATIENT. ID BANDS REMOVED. PATIENT IN STABLE CONDITION.
== END 2017-08-22 19:00 | disposition home or self-care (01) | DRG 871 ==
LOC: MED 07:10 → MTU 10:59
PROVIDERS: ADMIT Preventive Medicine Preventive Medicine/Occupational Environmental Medicine; ATTEND Preventive Medicine Preventive Medicine/Occupational Environmental Medicine
DX: A41.89 Other specified sepsis (principal); G93.41 Metabolic encephalopathy; N17.9 Acute kidney failure, unspecified; N39.0 Urinary tract infection, site not specified; E83.39 Other disorders of phosphorus metabolism; E83.52 Hypercalcemia; D64.9 Anemia, unspecified; E88.09 Other disorders of plasma-protein metabolism, not elsewhere classified; G30.9 Alzheimer's disease, unspecified; E86.0 Dehydration; F02.80 Dementia in other diseases classified elsewhere, unspecified severity, without behavioral disturbance, psychotic disturbance, mood disturbance, and anxiety; I10 Essential (primary) hypertension; K57.90 Diverticulosis of intestine, part unspecified, without perforation or abscess without bleeding; K80.20 Calculus of gallbladder without cholecystitis without obstruction; R73.9 Hyperglycemia, unspecified; R74.0 Nonspecific elevation of levels of transaminase and lactic acid dehydrogenase [LDH]; Z88.8 Allergy status to other drugs, medicaments and biological substances; Z91.041 Radiographic dye allergy status
CPT/HCPCS: 36415; 71010; 80048; 80053; 81001; 82570; 82575; 82948; 83605; 83735; 84100; 84300; 84484; 85025; 85610; 85651; 86140; 87040; 87081; 87086; 87186; 93005; 96361; 96365; 96375; 97799; 99285; J0696; J1200; J1630; J2060; J2270; J3370; J3475; J7030; J7042; J7060; Q0092